=== PATIENT | male | born 1980 ===

== ENCOUNTER 2018-05-18 21:15 | Emergency (ER) | payer BC ==
--- NOTE | 2018-05-18 21:50 | ED PDOC ---
HPI: Trauma/Fall - HPI Time Seen by Provider: 05/18/18 21:30 Chief Complaint (Nursing): Dizziness/Lightheaded Chief Complaint (Provider): fall History Per: Patient History/Exam Limitations: no limitations Injury Occurred (Timing): Hours Ago: (1) Additional Complaint(s): 37 y/o male presents for evaluation of fall 1 hour prior to arrival. Patient states he was at a [employer] and slipped and fell down a flight of stairs. Patient reports pain to back of head, neck, and left side of back/ribs. Associated posterior headache, dizziness, and difficulty breathing secondary to back pain, left shoulder pain and left elbow pain. Denies vision changes, vomiting, extremity numbness/weakness, chest pain, palpitations, abdominal pain Past Medical History Reviewed: Historical Data, Nursing Documentation, Vital Signs Vital Signs: Last Vital Signs Temp 98.4 F 05/18/18 21:25 Pulse 102 H 05/18/18 21:25 Resp 19 05/18/18 21:25 BP 97/58 L 05/18/18 21:25 Pulse Ox 98 05/18/18 21:25 - Medical History PMH: Back Problems - Surgical History Surgical History: Appendectomy - Family History Family History: States: No Known Family Hx - Home Medications Home Medications: Ambulatory Orders Medication Instructions Recorded Cyclobenzaprine [Cyclobenzaprine 10 mg PO BID PRN #14 tab 05/19/18 HCl] Naproxen [Naprosyn] 500 mg PO Q12 PRN #20 tablet 05/19/18 traMADol [Ultram] 50 mg PO Q8 PRN #10 tab 05/19/18 - Allergies Allergies/Adverse Reactions: Allergies Allergy/AdvReac Type Severity Reaction Status Date / Time iodine Allergy ANAPHYLAXIS Verified 05/18/18 21:29 Review of Systems ROS Statement: Except As Marked, All Systems Reviewed And Found Negative Musculoskeletal: Positive for: Shoulder Pain (left), Arm Pain (left elbow), Back Pain Neurological: Positive for: Headache, Dizziness Physical Exam - Reviewed Nursing Documentation Reviewed: Yes Vital Signs Reviewed: Yes - Physical Exam Appears: Positive for: Well, Non-toxic, Uncomfortable Head Exam: Positive for: NORMAL INSPECTION, NORMOCEPHALIC. Negative for: ATRAUMATIC (tender to palpate occipital scalp; no hematoma noted) Skin: Positive for: Normal Color Eye Exam: Positive for: EOMI, PERRL ENT: Positive for: Normal ENT Inspection Cardiovascular/Chest: Positive for: Regular Rate, Rhythm Respiratory: Positive for: Normal Breath Sounds Gastrointestinal/Abdominal: Positive for: Soft, Tenderness (left flank) Back: Positive for: L CVA Tenderness, Other (left posterior lower back tenderness with + ecchymosis, edema). Negative for: Vertebral Tenderness, Muscle Spasm Extremity: Positive for: Tenderness (anterior left shoulder without edema, deformity. Limited ROM flexion/abduction secondary to pain at shoulder. Tenderness left olecranon process with overlying abrasion noted. FROM left elbow. Distal NV/motor intact), Capillary Refill (<2 sec b/l UE). Negative for : Calf Tenderness, Deformity, Swelling Neurologic/Psych: Positive for: Alert, Oriented (x3). Negative for: Motor/ Sensory Deficits - Laboratory Results Result Diagrams: 05/18/18 22:52 05/18/18 22:52 - ECG O2 Sat by Pulse Oximetry: 98 - Progress ED Course And Treament: labs, CT head, CT cspine, CT chest/abd/pelvis, IV morphine ordered Patient states he thinks he may have iodine allergy, had to be "admitted" after having a CT scan once due to reaction Case discussed with ED attending Dr. Estes; will pre-medicate with IV benadryl, IV solumedrol EXAM: CT Head Without Intravenous Contrast EXAM DATE/TIME: Examination ordered 05/18/2018 9:44 PM. Image number total count reviewed [id number] CLINICAL HISTORY: The patient is 37 years old and is male; Injury or trauma; Fall; Initial encounter; Concussion / head injury; Consciousness not specified; Injury details: Fell down metal stairs this evening Facility exam id and description: Ct_heads head w/o contrast TECHNIQUE: Axial computed tomography images of the head/brain without intravenous contrast. All CT scans at this facility use at least one of these dose optimization techniques: automated exposure control; mA and/or kV adjustment per patient size (includes targeted exams where dose is matched to clinical indication); or iterative reconstruction. Coronal and sagittal reformatted images were created and reviewed. COMPARISON: No relevant prior studies available. FINDINGS: BRAIN: Unremarkable. No hemorrhage. No significant white matter disease. No edema. VENTRICLES: Unremarkable. No ventriculomegaly. BONES/JOINTS: Unremarkable. No acute fracture. SOFT TISSUES: Unremarkable. SINUSES: 8mm left maxillary sinus polyp. MASTOID AIR CELLS: Unremarkable as visualized. No mastoid effusion. IMPRESSION: No acute findings. EXAM: CT Cervical Spine Without Intravenous Contrast EXAM DATE/TIME: Examination ordered 05/18/2018 9:45 PM. Image number total count reviewed [id number] CLINICAL HISTORY: The patient is 37 years old and is male; Injury or trauma; Fall; Initial encounter; Concussion /head injury; Injury details: Fell down metal stairs this evening Facility exam id and description: Ct_csps cervical spine w/o contrast TECHNIQUE: Axial computed tomography images of the cervical spine without intravenous contrast. All CT scans at this facility use at least one of these dose optimization techniques: automated exposure control; mA and/or kV adjustment per patient size (includes targeted exams where dose is matched to clinical indication); or iterative reconstruction. COMPARISON: No relevant prior studies available. FINDINGS: VERTEBRAE: No acute fracture. DISCS/SPINAL CANAL/NEURAL FORAMINA: Straightening of the cervical spine with degenerative changes particularly at C5-6 and C6-7. SOFT TISSUES: Unremarkable. LUNG APICES: Unremarkable as visualized. IMPRESSION: Straightening of the cervical spine with degenerative changes particularly at C5 -6 and C6-7. EXAM: CT Chest With Intravenous Contrast EXAM DATE/TIME: 05/18/2018 9:46 PM CLINICAL HISTORY: 37 years old, male; Injury or trauma; Fall; Initial encounter; Blunt; Llq; Blunt trauma (contusions or hematomas); Additional info: Fall, left posterior rib/flank pain and bruising TECHNIQUE: Axial computed tomography images of the chest with intravenous contrast. All CT scans at this facility use at least one of these dose optimization techniques: automated exposure control; mA and/or kV adjustment per patient size (includes targeted exams where dose is matched to clinical indication); or iterative reconstruction. Coronal and sagittal reformatted images were created and reviewed. CONTRAST: 95 ml of [id number] administered intravenously. COMPARISON: CT ABD 06/10/2013 11:45 PM FINDINGS: Lungs: Minimal bilateral dependent atelectasis. Pleural space: Normal. No pneumothorax. No pleural effusion. Heart: Normal. No cardiomegaly. No pericardial effusion. Mediastinum: Induration of anterior mediastinal fat consistent with residual thymic tissue. Aorta: Normal. No aortic aneurysm. Lymph nodes: Unremarkable. No enlarged lymph nodes. Bones/joints: Unremarkable. No acute fracture. Soft tissues: Unremarkable. IMPRESSION: Negative CT chest. No acute posttraumatic change is seen. EXAM: CT Abdomen and Pelvis With Intravenous Contrast EXAM DATE/TIME: 05/18/2018 9:46 PM CLINICAL HISTORY: 37 years old, male; Injury or trauma; Fall; Initial encounter; Blunt; Llq; Blunt trauma (contusions or hematomas); Additional info: Fall, left posterior rib/flank pain and bruising TECHNIQUE: Axial computed tomography images of the abdomen and pelvis with intravenous contrast. All CT scans at this facility use at least one of these dose optimization techniques: automated exposure control; mA and/or kV adjustment per patient size (includes targeted exams where dose is matched to clinical indication); or iterative reconstruction. Coronal and sagittal reformatted images were created and reviewed. CONTRAST: 95 ml of [id number] administered intravenously. COMPARISON: CT ABD 06/10/2013 11:45 PM FINDINGS: Lower thorax: No acute findings. ABDOMEN: Liver: The liver and spleen are intact. No perihepatic or perisplenic fluid collections are identified. Gallbladder and bile ducts: The gallbladder is contracted with no stones. Pancreas: Normal. No ductal dilation. Spleen: Normal. No splenomegaly. Adrenals: Normal. No mass. Kidneys and ureters: Normal. No hydronephrosis. Stomach and bowel: Borderline distention of the stomach with food material. Appendix: There are no changes of appendicitis. A normal appendix is not seen. PELVIS: Bladder: Unremarkable as visualized. Reproductive: Unremarkable as visualized. ABDOMEN and PELVIS: Intraperitoneal space: Normal. No free air. No significant fluid collection. Bones/joints: No acute fracture. No dislocation. Soft tissues: Unremarkable. Vasculature: Normal. No abdominal aortic aneurysm. Lymph nodes: Normal. No enlarged lymph nodes. IMPRESSION: 1. There is borderline distention of the stomach which in view of a contracted gallbladder likely reflects recent ingestion. 2. Otherwise negative CT abdomen/pelvis. No acute posttraumatic change is seen. Patient observed on cost recovery technician after returning from CT scan On re-eval, patient resting comfortably; states pain improved. Patient educated on findings, discharged with rx Naproxen, Tramadol, FLexeril Advised rest. Ice application to affected areas. Neosporin application for abrasions Left arm sling given for comfort Follow up PMD 2-3 days Return precautions given Patient demonstrates full understanding of discharge instructions. Patient requires no further intervention in ED and is stable for discharge at this time Disposition - Clinical Impression Clinical Impression: Head injury, Shoulder pain, left, Hip pain, left, Contusion, back, Neck pain, Abrasion of left elbow - Patient ED Disposition Is Patient to be Admitted: No Counseled Patient/Family Regarding: Studies Performed, Diagnosis, Need For Followup, Rx Given - Disposition Disposition: Routine/Home Disposition Time: 03:00 Condition: IMPROVED Prescriptions: Cyclobenzaprine [Cyclobenzaprine HCl] 10 mg PO BID PRN #14 tab PRN Reason: Muscle Spasm Naproxen [Naprosyn] 500 mg PO Q12 PRN #20 tablet PRN Reason: Pain, Moderate (4-7) traMADol [Ultram] 50 mg PO Q8 PRN #10 tab PRN Reason: Pain, Severe (8-10) Instructions: Shoulder Sprain, Taking Care of Bruises, Neck Pain, Skin Abrasions, Minor Head Injury Forms: [facility] ([place]ian), [facility] School/Work Excuse
[2018-05-18] MEDS ORDERED: Iohexol 300 100 ML IJ ONE (22:14)
[2018-05-18] MEDS ORDERED: Sodium Chloride 0.9% 50 ML IV ONE (22:14)
[2018-05-18] MEDS ORDERED: DiphenhydrAMINE 50 mg/ml Inj IV ONE (23:09)
[2018-05-18 23:11] LABS: ALB/GLOB RATIO 1.3 (1.0-2.1); ALBUMIN 3.5 g/dL (3.5-5.0); ALT/SGPT 34 U/L (21-72); AST/SGOT 32 U/L (17-59); BLOOD UREA NITROGEN 20 mg/dl (9-20); CALCIUM 8.7 mg/dL (8.4-10.2); GFR NON-AFRICAN AMERICAN > 60
[2018-05-18 23:13] LABS: SQUAMOUS EPITHIAL < 1 /hpf (0-5); URINE BACTERIA RARE (<OCC); URINE BILIRUBIN NEGATIVE (NEGATIVE); URINE BLOOD NEGATIVE (NEGATIVE); URINE CLARITY TURBID (Clear); URINE GLUCOSE (UA) NEG (Normal); URINE LEUKOCYTE ESTERASE NEG Leu/uL (Negative); URINE PROTEIN 30 mg/dL (NEGATIVE)
[2018-05-18 23:14] LABS: URINE COLOR DARK YELLOW (YELLOW)
[2018-05-18] MEDS ORDERED: DiphenhydrAMINE 50 mg/ml Inj ONE (23:21)
[2018-05-19 00:58] LABS: BASO # 0.1 K/uL (0.0-0.2); EOS # 0.2 K/uL (0.0-0.7); EOS % 1.8 % (0.0-4.0); HEMOGLOBIN 11.9 g/dL (12.0-18.0); LYMPH # 3.5 K/uL (1.0-4.3); LYMPH % 28.9 % (20.0-40.0); MEAN CELL VOLUME 89.5 fl (80.0-94.0); MEAN CORPUSCULAR HEMOGLOBIN 31.1 pg (27.0-31.0); MEAN CORPUSCULAR HGB CONC 34.7 g/dL (33.0-37.0); MEAN PLATELET VOLUME 7.7 fl (7.2-11.7); MONO # 1.2 K/uL (0.0-0.8); NEUT % 58.3 % (50.0-75.0); NRBC % 0.1 % (0.0-0.0); RBC 3.84 Mil/uL (4.40-5.90); RED CELL DISTRIBUTION WIDTH 13.7 % (11.5-14.5); WHITE BLOOD COUNT 12.1 K/uL (4.8-10.8)
[2018-05-19 02:49] VITALS: TEMP 97.7
[2018-05-19 04:56] VITALS: BP 126/70; PULSE 88; RESP 20
--- NOTE | 2018-05-19 11:34 | CT ---
Date of service: 05/18/2018 PROCEDURE: CT HEAD WITHOUT CONTRAST. HISTORY: fall COMPARISON: None available. TECHNIQUE: Axial computed tomography images were obtained through the head/brain without intravenous contrast. Radiation dose: Total exam DLP = 832.31 mGy-cm. This CT exam was performed using one or more of the following dose reduction techniques: Automated exposure control, adjustment of the mA and/or kV according to patient size, and/or use of iterative reconstruction technique. FINDINGS: Streak artifact obscures evaluation of the skullbase. HEMORRHAGE: No intracranial hemorrhage. BRAIN: No mass effect or edema. The moody-white matter differentiation appears intact. Please note that MRI with diffusion imaging is more sensitive in the detection of acute ischemic event. VENTRICLES: No hydrocephalus. CALVARIUM: Unremarkable. PARANASAL SINUSES: Mucosal polyp versus retention cyst, left maxillary sinus. Otherwise visualized paranasal sinuses appear grossly clear. MASTOID AIR CELLS: Unremarkable as visualized. No inflammatory changes. OTHER FINDINGS: None. IMPRESSION: No acute intracranial pathology identified. Preliminary impression was provided by virtual radiologic.
--- NOTE | 2018-05-19 11:36 | RAD ---
PROCEDURE: Radiographs of the Left Shoulder HISTORY: fall COMPARISON: None available. FINDINGS: BONES: No acute displaced fracture. The distal clavicle and underlying ribs appear intact. Scoliosis of the visualized thoracic spine. JOINTS: No acute dislocation. SOFT TISSUES: Soft tissues appear unremarkable. No evidence of radiopaque foreign body. IMPRESSION: No acute displaced fracture or dislocation evident. If symptoms persist or if there is continued clinical concern, x-ray follow-up in 7-10 days should be considered.
--- NOTE | 2018-05-19 12:07 | CT ---
Date of service: 05/18/2018 PROCEDURE: CT Cervical Spine without contrast HISTORY: Fall COMPARISON: None available. TECHNIQUE: Axial computed tomography images were obtained of the cervical spine without the use of intravenous contrast. Coronal and sagittal reformatted images were created and reviewed. Radiation dose: Total exam DLP = 324.16 mGy-cm. This CT exam was performed using one or more of the following dose reduction techniques: Automated exposure control, adjustment of the mA and/or kV according to patient size, and/or use of iterative reconstruction technique. FINDINGS: VERTEBRAE: The at current study reveals no acute compression fractures no retropulsed fragments. Vertebral bodies exhibit relatively normal stature. There is some mild kyphotic angulation deformity centered at the C4-C5 level with straightening of the normal cervical lordosis above and below this level. Findings may in part be due to patient positioning gantry however underlying element of muscle spasm may contribute. Vertebral bodies otherwise exhibit normal alignment. Facet joints also normally aligned DISCS/SPINAL CANAL/NEURAL FORAMINA: Mild multilevel degenerative spondylosis. At the C2-C3 level, there is adequate disc height. . Minimal central and bilateral disc bulge slightly larger on the right than left flattens the ventral surface of the thecal sac though does not cause canal or compromise nor cord compression. At the C3-C4 level, there is minor anterior disc space narrowing. Small central and bilateral disc protrusion mildly compresses the ventral surface of the thecal sac and appears reach the ventral surface of the cord. Central canal is slightly narrowed. Exit foramina appear marginal to adequate . At the C4-C5 level, there is mild anterior disc space narrowing. No disc herniation or significant disc bulge. Facet joints are slightly hypertrophic Central canal and exit foramina appear adequate. At the C5-C6 level, there is also mild anterior disc space narrowing. No disc herniation or significant disc bulge. Central canal and exit foramina appear adequate. PARASPINAL SOFT TISSUES: Unremarkable. OTHER FINDINGS: None. IMPRESSION: No acute fractures. Mild kyphotic angulation deformity centered at C4-C5 level. Very minor multilevel degenerative disc changes seen at several levels most notably the C3-C4 level where there appears to be minimal cord compression.
--- NOTE | 2018-05-19 12:20 | CT ---
Date of service: 05/18/18 CT chest, abdomen, and pelvis with IV contrast Indication: fall, left posterior rib/flank pain and bruising Technique: Contiguous axial images of the chest, abdomen, and pelvis. Coronal and Sagittal reformats generated and reviewed. This CT exam was performed using 1 or more of the following dose reduction techniques: Automated exposure control, adjustment of the MAA and/or kV according to patient size, and/or use of iterative reconstruction technique. Oral contrast was not administered. 95 mL Omnipaque 300 IV Radiation dose: Total exam DLP = 786.19 MGy-cm. Comparison: CT abdomen and pelvis performed 06/10/13 Findings: Visualized portions of the inferior thyroid gland appear unremarkable. The mediastinal and hilar vascular structures appear within normal limits. The heart appears within normal limits of size. Nodular soft tissue within the anterior mediastinum appears consistent with residual thymic tissue. Mild bibasilar atelectasis. No pleural effusion. No pneumothorax. No suspicious pulmonary nodules measuring greater than 5 mm. The liver, spleen, kidneys, pancreas, adrenal glands, and gallbladder appear unremarkable. Evidence of ingested debris within the stomach which is incompletely distended. Small hiatal hernia/distal esophageal wall thickening. The bowel loops appear within normal limits of caliber without evidence of intestinal obstruction. No secondary signs of acute appendicitis. There is no definite free air. The urinary bladder appears unremarkable. Mild scoliosis. No acute osseous abnormality is detected. Impression: No acute pathology identified. Incidental findings as above. Preliminary impression was provided by virtual radiologic.
--- NOTE | 2018-05-19 13:24 | RAD ---
Date of service: 05/18/2018 PROCEDURE: Radiographs of the left elbow. HISTORY: fall COMPARISON: No prior. FINDINGS: BONES: Normal. No fracture. JOINTS: Normal. No osteoarthritis. SOFT TISSUES: Normal. JOINT EFFUSION: None. OTHER FINDINGS: None IMPRESSION: No evidence acute displaced fracture or dislocation. If symptoms persist or occult fracture suspected clinically recommend repeat radiographs in 5-10 days as most fractures should become radiographically evident in this timeframe.
--- NOTE | 2018-05-19 13:28 | RAD ---
PROCEDURE: Left Hip X-ray Radiographs. HISTORY: fall, left hip pain COMPARISON: None. FINDINGS: BONES: Normal. No fracture. JOINTS: Normal. SOFT TISSUES: Normal. OTHER FINDINGS: None. IMPRESSION: No evidence of acute displaced fracture nor dislocation. If symptoms persist or occult fracture suspected clinically recommend repeat radiographs in 7-10 days as most fractures should become radiographically evident in timeframe.
[2018-05-20 05:46] VITALS: O2SAT 98
== END 2018-05-19 03:56 | disposition home or self-care (01) ==
LOC: H.ER 21:15
DX: R42 Dizziness and giddiness (principal); S09.90XA Unspecified injury of head, initial encounter; S19.9XXA Unspecified injury of neck, initial encounter; S20.222A Contusion of left back wall of thorax, initial encounter; S40.812A Abrasion of left upper arm, initial encounter; S50.312A Abrasion of left elbow, initial encounter; W10.9XXA Fall (on) (from) unspecified stairs and steps, initial encounter; Y92.89 Other specified places as the place of occurrence of the external cause
CPT/HCPCS: 70450; 71260; 72125; 73030; 73080; 73502; 74177; 80053; 81003; 85025; 87086; 96374; 96375; 99285; J1200; J2270; J2930; Q9967